=== PATIENT | male | born 1990 | race Two or more races ===

== ENCOUNTER 2024-03-08 16:45 | Emergency (ER) | payer BC, MEDICAID ==
[~2024-03-08] VITALS: Ht 182.9 cm; Wt 100.0 kg
[2024-03-08 16:49] VITALS: BP 140/86; PULSE 68; RESP 16; O2SAT 94
[2024-03-08] MEDS: DIPHENHYDRAMINE 50MG/ML VIAL IM STA (16:54)
[2024-03-08] MEDS: LORAZEPAM 2MG/ML INJ IM STA (16:54)
[2024-03-08] MEDS: HALOPERIDOL LACTATE 5MG/ML VIAL IM ONE (17:00)
== END 2024-03-08 17:55 | disposition home or self-care (01) ==
LOC: ER 16:45
DX: F41.1 Generalized anxiety disorder (principal)
CPT/HCPCS: 99283; J1200; J1630; J2060; Z7610 ×2